=== PATIENT | male | born 1955 | race Caucasian/White ===

== ENCOUNTER → 2018-03-26 | Outpatient (CLI) | payer OTHER ==
[~2018-03-26] VITALS: Ht 177.8 cm; Wt 93.0 kg
[~2018-03-26] MED LIST: ASPIR 8181 MG PO; BENICAR40 MG PO; FISH OIL 1,001000 M2 PO; GLUCOPHAGE XR500 MG PO; HYDROCODON-ACE1 EAC5 PO; NORCO 10-325 T1 EACH PO; NORVASC5 MG PO; ZANAFLEX4 MG PO
--- NOTE | ~2018-03-26 | HPC ---
[facility] [place] [address] PAIN MANAGEMENT CONSULTATION Name: MALICK LIZ Room #: REG [place]LEY [place].#: [id number] Admission: 03/26/18 Attend Phys: Mino Gross MD Discharge: Date of : 53 Report #: [id number] THIS REPORT FOR: //name// CC: SARAH Floyd MD Physician staff Mino Gross DATE OF SERVICE: 03/26/2018 HISTORY OF PRESENT ILLNESS: The patient is a 63-year old who I have seen today at the pain clinic at the request of Dr. Mainor Fraser for an epidural steroid injection. 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 He has pain in his low back now that radiates into his right leg. It is quite severe, requiring him to take up to 3-4 hydrocodone per day. All of his pain is on the right. It follows an L5-S1 distribution. He has an MRI that shows that there is a right impingement of the S1 nerve root, possibly the L5 nerve root as well by the L5 disk. There are L5-S1 retrolisthesis. He states the pain is worse with standing and walking and if he lies on his back, takes pain medications, holds his right leg up to get some relief. Pain intensity scores vary between 8 and 10. Pain drawing shows a classic S1 distribution. MEDICATIONS: Hydrocodone 10/325 one tablet 4 times daily. It is helpful. Amlodipine, Benicar, metformin, aspirin, fish oil and Zanaflex 1 tablet q. 8 hours. ALLERGIES: To TETRACYCLINE. PAST MEDICAL HISTORY: Shoulder surgery about 20 years ago. He had a cervical disk herniation with posterior laminectomy performed by Dr. Mainor Fraser in September of 2016 and has done well. He has a history of diverticulosis. He is diabetic, on metformin and is under treatment for hypertension. 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. He is a neighbor of Dr. Fraser. He smokes less than a pack of cigarettes a day and has done so for about 15 years and denies use of alcohol or any sort of illegal drugs. He has impact pain score of 52/70 showing that his pain interferes quite [facility] [address] [place] [address] PAIN MANAGEMENT CONSULTATION Name: MALICK LIZ Room #: REG [facility] Os[place].#: [id number] Admission: 03/26/18 Attend Phys: Mino Gross MD Discharge: Date of : 53 Report #: [id number] significantly with his day-to-day activities. REVIEW OF SYSTEMS: Completed and the 12-point review is reviewed with the patient. He denies any significant side effects from his medication. He is limited by his pain as described. PHYSICAL EXAMINATION: GENERAL: He is a pleasant 63-year-old gentleman. VITAL SIGNS: His blood pressure is 128/94, heart rate 104 and respirations 18. He is 5 feet 10 inches and BMI of 29.4. MUSCULOSKELETAL: He is able to get up and down out of a chair independently without using his arms. He walks without antalgic features. He has pain with forward flexion, extension some limitations in all range of motion. Tenderness across the lumbar spine is noted. There is no scar. There is straight leg raising on the right at 90 degrees supine and sitting, which reproduces an L5-S1 distribution pain. No sensory loss is noted. No focal weakness is noted in the lower extremities. Deep tendon reflexes are trace to absent throughout the knees and ankles and symmetrical with no noticeable difference between the right and left side. RADIOLOGICAL DATA: MRI once again demonstrates the broad-based right paracentral disk protrusion abutting the S1 nerve root contributing the mild right-sided central canal stenosis. It should be noted there is also neural foraminal stenosis at 2 levels above this as well. IMPRESSION AND PLAN: He is an excellent candidate for an epidural steroid injection. He has driven 70 miles to come see me from [place] for this procedure, which has been recommended by Dr. Fraser. Dr. Fraser would prefer not to do surgery and we would also prefer not to have the patient taking hydrocodone at the dose that he is currently on. He is not normally accustomed to taking as much pain medication. We were disappointed to see that his insurance company despite multiple efforts by my office to proceed with the recommended treatment would not allow us to proceed today. This will necessitate the patient returning back to [place], [place] with a family member who is attendant his visit with him today and he will have to return to the clinic for the procedure, which we could have easily performed today at the end of his visit. Because he was out of pain medication and was unable to see his primary care physician, I was left in the position to provide him with some additional [place] 10/325 and I gave him 30 tablets. This is not a large amount of medication, but I felt that this would be best since I did not want the patient showing up in the Emergency Room in intractable pain. [facility] [address] [place] [address] PAIN MANAGEMENT CONSULTATION Name: MALICK LIZ Room #: LORRAINE BUTCHER Oswald#: [id number] Admission: 03/26/18 Attend Phys: Mino Gross MD Discharge: Date of : 53 Report #: [id number] Followup visit scheduled as soon as we have gotten preauthorization from [employer] for mail handlers. By: [id number] Mino Gross MD /nt
[2018-03-26 14:01] VITALS: BP 128/92
== END ==
LOC: PAIN 07:01
DX: M54.5 Low back pain (principal); M79.604 Pain in right leg; M53.3 Sacrococcygeal disorders, not elsewhere classified; Z87.891 Personal history of nicotine dependence